=== PATIENT | male | born 1995 | race Caucasian/White ===

== ENCOUNTER 2020-12-08 12:10 | Day surgery (SDC) | payer MEDICAID ==
[2020-12-08] MEDS ORDERED: Dextrose 5%-0.9% NaCl 1,000 ML IV SCH (13:00)
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
[2020-12-08] MEDS ORDERED: Iopamidol 612 MG/ML 100 ML Bottle IVPUSH ONE (13:51)
[2020-12-08] MEDS ORDERED: Iopamidol 612 MG/ML 50 ML SDV IVPUSH ONE (13:51)
[2020-12-08] MEDS ORDERED: Sodium Chloride 0.9% 10 ML Syringe FLUSH SCH (14:00)
--- NOTE | 2020-12-08 15:04 | CT ---
CT abdomen and pelvis Technique: Multiple axial sections were obtained from above the dome of the diaphragm inferiorly through the pubic symphysis. Intravenous and oral contrast was utilized. Delayed images were also obtained through the bladder. Reconstructed coronal and sagittal images were obtained. Findings: Inflammatory change is noted within the right lower quadrant. Appendix shows evidence of appendicoliths. Overall, findings are found compatible with mild appendicitis. Small amount of simple fluid is seen within the pelvis Visualized lung bases show nothing acute. Liver shows no focal abnormality. Gallbladder contains no calcified gallstones. Spleen size is normal. Adrenal glands show no nodule. Kidneys show symmetric contrast enhancement without hydronephrosis or mass being seen. Pancreas shows no discrete abnormality. Abdominal aorta shows no aneurysm. No retroperitoneal adenopathy or mesenteric abnormalities are seen. No pelvic mass or adenopathy is noted. Delayed images show contrast within bladder Bone window settings were reviewed. Spondylitic defects are noted at L5-S1 with minimal spondylolisthesis. Bony structures are otherwise unremarkable for the patient's age. Impression: 1. Inflammatory change within the right lower quadrant. Appendicoliths are seen within the appendix. Findings are compatible with mild appendicitis. 2. Slight free fluid within the pelvis which appears to be simple. 3. Spondylitic defects at L5-S1. Diagnostic code #5
[2020-12-08] MEDS ORDERED: cefOXitin 2 GM in Premix Bag 1 BAG IV ONE (15:22)
[2020-12-08] MEDS ORDERED: Metoclopramide 10 MG/2 ML SDV IVPUSH ONE (15:24)
[2020-12-08] MEDS ORDERED: Ondansetron 4 MG/2 ML SDV ONE (16:00)
[2020-12-08] MEDS ORDERED: Propofol 200 MG/20 ML SDV ONE (16:00)
[2020-12-08] MEDS ORDERED: Rocuronium 50 MG/5 ML Vial ONE (16:00)
[2020-12-08] MEDS ORDERED: fentaNYL 250 MCG/5 ML SDV ONE (16:01)
[2020-12-08] MEDS ORDERED: Lidocaine 1% 4 ML ONE (16:01)
[2020-12-08] MEDS ORDERED: Midazolam 1 MG/ML 2 ML SDV ONE (16:01)
--- NOTE | 2020-12-08 16:12 | PCM.HP.2 ---
H&P History of Present Illness - General Date of Service: 12/08/20 Admit Problem/Dx: Admission Diagnosis/Problem Admission Diagnosis/Problem Appendicitis Source of Information: Patient History Limitations: Reports: No Limitations - History of Present Illness Initial Comments - Free Text/Narative: Patient is 25 otherwise healthy gentleman. He was at a Bachelor libertarian on Monday. Monday morning he started to have some RLQ pain. The pain did not get better. Today he came to the ED. No fevers or chills. He has had mild nausea. no vomiting. No prior surgeries. Onset of Symptoms: Reports: Gradual Duration of Symptoms: Reports: Day(s): (2), Getting Worse Location: Reports: Abdomen Quality: Reports: Ache Severity: Severe Improves with: Reports: Immobilization, Medication Worsens with: Reports: Movement Right Lower Abdomen Pain Score (Numeric/FACES): 8 - Related Data Allergies/Adverse Reactions: Allergies Allergy/AdvReac Type Severity Reaction Status Date / Time acetaminophen [From Percocet] Allergy Facial Verified 12/08/20 12:26 Swelling oxycodone [From Percocet] Allergy Facial Verified 12/08/20 12:26 Swelling Home Medications: Home Meds . [No Known Home Meds] 12/08/20 [History] Past Medical History Cardiovascular History: Reports: None Respiratory History: Reports: Bronchitis, Recurrent, Pneumonia, Recurrent Gastrointestinal History: Reports: GERD Genitourinary History: Reports: None Musculoskeletal History: Reports: None Neurological History: Reports: Concussion Psychiatric History: Reports: None Endocrine/Metabolic History: Reports: None Hematologic History: Reports: None Immunologic History: Reports: None Oncologic (Cancer) History: Reports: None Dermatologic History: Reports: None - Infectious Disease History Infectious Disease History: Reports: Influenza, Novel Coronavirus - Past Surgical History Head Surgeries/Procedures: Reports: None HEENT Surgical History: Reports: Oral Surgery Social & Family History - Family History Family Medical History: No Pertinent Family History - Tobacco Use Tobacco Use Status *Q: Never Tobacco User Second Hand Smoke Exposure: No - Caffeine Use Caffeine Use: Reports: Coffee, Energy Drinks, Soda, Tea - Recreational Drug Use Recreational Drug Use: No - Living Situation & Occupation Occupation: Employed [employer] Review of Systems - Review of Systems: Review Of Systems: See Below General: Reports: No Symptoms HEENT: Reports: No Symptoms Pulmonary: Reports: No Symptoms Cardiovascular: Reports: No Symptoms Gastrointestinal: Reports: Abdominal Pain Genitourinary: Reports: No Symptoms Musculoskeletal: Reports: No Symptoms Exam - Exam Exam: See Below - Vital Signs Vital Signs: Last Vital Signs Temp 97.4 F 12/08/20 12:28 Pulse 69 12/08/20 12:28 Resp 18 12/08/20 12:28 BP 146/80 H 12/08/20 12:28 Pulse Ox 97 12/08/20 12:28 Weight: 961.434 kg - Exam General: Alert, Oriented, Cooperative Lungs: Clear to Auscultation, Normal Respiratory Effort Cardiovascular: Regular Rate, Regular Rhythm, Normal S1, Normal S2 GI/Abdominal Exam: Soft, No Organomegaly, No Distention, No Mass, Tender (RLQ) - Patient Data Lab Results Last 24 hrs: Laboratory Results - last 24 hr 12/08/20 12/08/20 Range/Units 13:15 13:15 WBC 7.11 (4.23-9.07) K/mm3 RBC 4.79 (4.63-6.08) M/mm3 Hgb 14.9 (13.7-17.5) gm/dl Hct 43.3 (40.1-51.0) % MCV 90.4 (79.0-92.2) fl MCH 31.1 (25.7-32.2) pg MCHC 34.4 (32.2-35.5) g/dl RDW Std Deviation 40.6 (35.1-43.9) fL Plt Count 204 (163-337) K/mm3 MPV 11.0 (9.4-12.3) fl Neutrophils % (Manual) 81 H (40-60) % Band Neutrophils % 0 (0-10) % Lymphocytes % (Manual) 15 L (20-40) % Atypical Lymphs % 0 % Monocytes % (Manual) 2 (2-10) % Eosinophils % (Manual) 2 (0.8-7.0) % Basophils % (Manual) 0 L (0.2-1.2) Platelet Estimate Adequate RBC Morph Comment Normal Sodium 139 (136-145) mEq/L Potassium 4.2 (3.5-5.1) mEq/L Chloride 100 (98-107) mEq/L Carbon Dioxide 27 (21-32) mEq/L Anion Gap 16.2 H (5-15) BUN 18 (7-18) mg/dL Creatinine 1.2 (0.7-1.3) mg/dL Est Cr Clr Drug Dosing 116.53 mL/min Estimated GFR (MDRD) > 60 (>60) mL/min BUN/Creatinine Ratio 15.0 (14-18) Glucose 109 H (70-99) mg/dL Calcium 9.0 (8.5-10.1) mg/dL Total Bilirubin 0.8 (0.2-1.0) mg/dL AST 38 H (15-37) U/L ALT 122 H (16-63) U/L Alkaline Phosphatase 111 (46-116) U/L C-Reactive Protein 4.7 H* (<1.0) mg/dL Total Protein 6.9 (6.4-8.2) g/dl Albumin 3.7 (3.4-5.0) g/dl Globulin 3.2 gm/dL Albumin/Globulin Ratio 1.2 (1-2) Lipase 95 (73-393) U/L Result Diagrams: 12/08/20 13:15 12/08/20 13:15 Sepsis Event Note - Evaluation Sepsis Screening Result: No Definite Risk - Focused Exam Vital Signs: Vital Signs Temp Pulse Resp BP Pulse Ox 12/08/20 12:28 97.4 F 69 18 146/80 H 97 Problem List Initiated/Reviewed/Updated: No Orders Last 24hrs: Active Orders 24 hr Category Date Time Status Admission Status [Patient Status] [ADT] Routine ADT 12/08/20 15:52 Active CORONAVIRUS COVID-19 RAPID [MOLEC] Stat Lab 12/08/20 15:22 Ordered URINALYSIS W/MICROSCOPIC [UA W/MICROSCOPIC] [URIN] Stat Lab 12/08/20 12:55 Ordered Dextrose 5%-0.9% NaCl [Dextrose 5%-Normal Saline] 1,000 Med 12/08/20 13:00 Active ml IV ASDIRECTED Sodium Chloride 0.9% [Saline Flush] Med 12/08/20 14:00 Active 10 ml FLUSH ASDIRECTED Schedule Procedure [COMM] Stat Oth 12/08/20 15:54 Ordered Medication Orders Dextrose/Sodium Chloride (Dextrose 5%-Normal Saline) 1,000 mls @ 999 mls/hr IV ASDIRECTED FILIPPO Last Admin: 12/08/20 13:19 Dose: 999 mls/hr Documented by: JORDAN Sodium Chloride (Sodium Chloride 0.9% 10 Ml Syringe) 10 ml FLUSH ASDIRECTED [facility] Admin: 12/08/20 14:33 Dose: 10 ml Documented by: KATIE Assessment/Plan Comment:: Patient has acute appendicitis with appendicolith based on CT imaging. I recomme nded surgical appendectomy. We discussed risks, benefits and alternatives. Specific risks discussed are, but not limited to, infection both on skin and deep, bleeding, injury to adjacent structures, needing open operation, reaction to medications. Questions were answered. Post op expectations were discussed. Informed consent was obtained.
[2020-12-08] MEDS ORDERED: Bupivacaine 0.5%/EPINEPHrine 1:200,000 30 ML SDV ONE (16:30)
--- NOTE | 2020-12-08 16:43 | PCM48HPAN ---
Post Anesthesia Note - EVALUATION WITHIN 48HRS OF ANESTHETIC Vital Signs in Normal Range: Yes Patient Participated in Evaluation: Yes Respiratory Function Stable: Yes Airway Patent: Yes Cardiovascular Function Stable: Yes Hydration Status Stable: Yes Pain Control Satisfactory: Yes Nausea and Vomiting Control Satisfactory: Yes Mental Status Recovered: Yes Vital Signs: Last Vital Signs Temp 36.3 C 12/08/20 12:28 Pulse 69 12/08/20 12:28 Resp 18 12/08/20 12:28 BP 146/80 H 12/08/20 12:28 Pulse Ox 97 12/08/20 12:28 - COMMENTS/OBSERVATIONS Free Text/Narrative:: no anesthesia complications noted
--- NOTE | 2020-12-08 16:46 | PCM.PREANE ---
Preanesthetic Assessment - Procedure Proposed Procedure: Emergency Laparoscopic appendectomy - Anesthesia/Transfusion/Family Hx Anesthesia History: Prior Anesthesia Without Reaction Family History of Anesthesia Reaction: No Transfusion History: No Prior Transfusion(s) - Review of Systems General: Fatigue, Malaise Pulmonary: No Symptoms Cardiovascular: No Symptoms Gastrointestinal: Abdominal Pain (RLQ) Neurological: No Symptoms Other: Reports: None - Physical Assessment NPO Status Date: 12/08/20 NPO Status Time: 13:00 Vital Signs: Last Vital Signs Temp 36.3 C 12/08/20 12:28 Pulse 69 12/08/20 12:28 Resp 18 12/08/20 12:28 BP 146/80 H 12/08/20 12:28 Pulse Ox 97 12/08/20 12:28 Height: 1.96 m Weight: 961.434 kg ASA Class: 1E Mental Status: Alert & Oriented x3 Airway Class: Mallampati = 1 Dentition: Reports: Normal Dentition Thyro-Mental Finger Breadths: 3 Mouth Opening Finger Breadths: 3 ROM/Head Extension: Full Lungs: Clear to Auscultation, Normal Respiratory Effort Cardiovascular: Regular Rate, Regular Rhythm - Lab Values: Laboratory Last Values WBC 7.11 K/mm3 (4.23-9.07) 12/08/20 13:15 RBC 4.79 M/mm3 (4.63-6.08) 12/08/20 13:15 Hgb 14.9 gm/dl (13.7-17.5) 12/08/20 13:15 Hct 43.3 % (40.1-51.0) 12/08/20 13:15 MCV 90.4 fl (79.0-92.2) 12/08/20 13:15 MCH 31.1 pg (25.7-32.2) 12/08/20 13:15 MCHC 34.4 g/dl (32.2-35.5) 12/08/20 13:15 RDW Std Deviation 40.6 fL (35.1-43.9) 12/08/20 13:15 Plt Count 204 K/mm3 (163-337) 12/08/20 13:15 MPV 11.0 fl (9.4-12.3) 12/08/20 13:15 Neutrophils % (Manual) 81 % (40-60) H 12/08/20 13:15 Band Neutrophils % 0 % (0-10) 12/08/20 13:15 Lymphocytes % (Manual) 15 % (20-40) L 12/08/20 13:15 Atypical Lymphs % 0 % 12/08/20 13:15 Monocytes % (Manual) 2 % (2-10) 12/08/20 13:15 Eosinophils % (Manual) 2 % (0.8-7.0) 12/08/20 13:15 Basophils % (Manual) 0 (0.2-1.2) L 12/08/20 13:15 Platelet Estimate Adequate 12/08/20 13:15 RBC Morph Comment Normal 12/08/20 13:15 Sodium 139 mEq/L (136-145) 12/08/20 13:15 Potassium 4.2 mEq/L (3.5-5.1) 12/08/20 13:15 Chloride 100 mEq/L (98-107) 12/08/20 13:15 Carbon Dioxide 27 mEq/L (21-32) 12/08/20 13:15 Anion Gap 16.2 (5-15) H 12/08/20 13:15 BUN 18 mg/dL (7-18) 12/08/20 13:15 Creatinine 1.2 mg/dL (0.7-1.3) 12/08/20 13:15 Est Cr Clr Drug Dosing 116.53 mL/min 12/08/20 13:15 Estimated GFR (MDRD) > 60 mL/min (>60) 12/08/20 13:15 BUN/Creatinine Ratio 15.0 (14-18) 12/08/20 13:15 Glucose 109 mg/dL (70-99) H 12/08/20 13:15 Calcium 9.0 mg/dL (8.5-10.1) 12/08/20 13:15 Total Bilirubin 0.8 mg/dL (0.2-1.0) 12/08/20 13:15 AST 38 U/L (15-37) H 12/08/20 13:15 ALT 122 U/L (16-63) H 12/08/20 13:15 Alkaline Phosphatase 111 U/L (46-116) 12/08/20 13:15 C-Reactive Protein 4.7 mg/dL (<1.0) H* 12/08/20 13:15 Total Protein 6.9 g/dl (6.4-8.2) 12/08/20 13:15 Albumin 3.7 g/dl (3.4-5.0) 12/08/20 13:15 Globulin 3.2 gm/dL 12/08/20 13:15 Albumin/Globulin Ratio 1.2 (1-2) 12/08/20 13:15 Lipase 95 U/L (73-393) 12/08/20 13:15 SARS CoV-2 RNA Rapid LAKSHMI Negative (NEGATIVE) 12/08/20 15:20 - Allergies Allergies/Adverse Reactions: Allergies Allergy/AdvReac Type Severity Reaction Status Date / Time acetaminophen [From Percocet] Allergy Facial Verified 12/08/20 12:26 Swelling oxycodone [From Percocet] Allergy Facial Verified 12/08/20 12:26 Swelling - Blood Blood Available: No Product(s) Available: None - Anesthesia Plan Pre-Op Medication Ordered: None - Acknowledgements Anesthesia Type Planned: General Anesthesia Pt an Appropriate Candidate for the Planned Anesthesia: Yes Alternatives and Risks of Anesthesia Discussed w Pt/Guardian: Yes Pt/Guardian Understands and Agrees with Anesthesia Plan: Yes PreAnesthesia Questionnaire Cardiovascular History: Reports: None Respiratory History: Reports: Bronchitis, Recurrent, Pneumonia, Recurrent Gastrointestinal History: Reports: GERD Genitourinary History: Reports: None Musculoskeletal History: Reports: None Neurological History: Reports: Concussion Psychiatric History: Reports: None Endocrine/Metabolic History: Reports: None Hematologic History: Reports: None Immunologic History: Reports: None Oncologic (Cancer) History: Reports: None Dermatologic History: Reports: None - Infectious Disease History Infectious Disease History: Reports: Influenza, Novel Coronavirus - Past Surgical History Head Surgeries/Procedures: Reports: None HEENT Surgical History: Reports: Oral Surgery - SUBSTANCE USE Tobacco Use Status *Q: Never Tobacco User Second Hand Smoke Exposure: No Recreational Drug Use History: No - HOME MEDS Home Medications: Home Meds . [No Known Home Meds] 12/08/20 [History] - CURRENT (IN HOUSE) MEDS Current Meds: Current Medications Dextrose/Sodium Chloride (Dextrose 5%-Normal Saline) 1,000 mls @ 999 mls/hr IV ASDIRECTED [facility] Last Admin: 12/08/20 13:19 Dose: 999 mls/hr Documented by: Sodium Chloride (Sodium Chloride 0.9% 10 Ml Syringe) 10 ml FLUSH ASDIRECTED [facility] Last Admin: 12/08/20 14:33 Dose: 10 ml Documented by: Discontinued Medications Bupivacaine HCl/Epinephrine Bitart (Bupivacaine 0.5%/Epinephrine 1:200,000 30 Ml Sdv) 30 ml .ROUTE .STK-MED ONE Stop: 12/08/20 16:31 Fentanyl (Fentanyl 250 Mcg/5 Ml Sdv) Confirm Administered Dose 250 mcg .ROUTE .STK-MED ONE Stop: 12/08/20 16:02 Cefoxitin Sodium 2 gm/ Premix 50 mls @ 100 mls/hr IV ONETIME ONE Stop: 12/08/20 15:51 Last Admin: 12/08/20 15:54 Dose: 100 mls/hr Documented by: Lidocaine HCl (Xylocaine-Mpf 1%) Confirm Administered Dose 4 mls @ as directed .ROUTE .STK-MED ONE Stop: 12/08/20 16:02 Iopamidol (Iopamidol 612 Mg/Ml 100 Ml Bottle) 100 ml IVPUSH ONETIME ONE Stop: 12/08/20 13:52 Last Admin: 12/08/20 14:33 Dose: 100 ml Documented by: Iopamidol (Iopamidol 612 Mg/Ml 50 Ml Sdv) 50 ml IVPUSH ONETIME ONE Stop: 12/08/20 13:52 Last Admin: 12/08/20 14:33 Dose: 25 ml Documented by: Metoclopramide HCl (Metoclopramide 10 Mg/2 Ml Sdv) 10 mg IVPUSH ONETIME ONE Stop: 12/08/20 15:25 Last Admin: 12/08/20 15:55 Dose: 10 mg Documented by: Midazolam HCl (Midazolam 1 Mg/Ml 2 Ml Sdv) Confirm Administered Dose 2 mg .ROUTE .STK-MED ONE Stop: 12/08/20 16:02 Ondansetron HCl (Ondansetron 4 Mg/2 Ml Sdv) Confirm Administered Dose 4 mg .ROUTE .STK-MED ONE Stop: 12/08/20 16:01 Propofol (Propofol 200 Mg/20 Ml Sdv) Confirm Administered Dose 200 mg .ROUTE .STK-MED ONE Stop: 12/08/20 16:01 Rocuronium Cameron (Rocuronium 50 Mg/5 Ml Vial) Confirm Administered Dose 50 mg .ROUTE .STK-MED ONE Stop: 12/08/20 16:01
[2020-12-08] MEDS ORDERED: Lactated Ringers 1,000 ML ONE ×3 (16:48→17:54)
[2020-12-08] MEDS ORDERED: Ketorolac 30 MG/ML SDV ONE (17:36)
[2020-12-08] MEDS ORDERED: fentaNYL 100 MCG/2 ML SDV IVPUSH PRN (18:03)
--- NOTE | 2020-12-08 18:04 | PCM.POSTAN ---
POST ANESTHESIA ASSESSMENT - MENTAL STATUS Mental Status: Alert, Oriented - VITAL SIGNS Vital Signs: Last Vital Signs Temp 36.5 C 12/08/20 17:56 Pulse 69 12/08/20 12:28 Resp 12 12/08/20 17:56 BP 136/53 L 12/08/20 17:56 Pulse Ox 100 12/08/20 17:56 - RESPIRATORY Respiratory Status: Respiratory Rate WNL, Airway Patent, O2 Saturation Stable, Supplemental Oxygen - CARDIOVASCULAR CV Status: Pulse Rate WNL, Blood Pressure Stable - GASTROINTESTINAL GI Status: No Symptoms - PAIN Pain Score: 0 - POST OP HYDRATION Hydration Status: Adequate & Stable - OBSERVATIONS Free Text/Narrative:: no anesthesia complications noted
--- NOTE | 2020-12-08 18:18 | PCM48HPAN ---
Post Anesthesia Note - EVALUATION WITHIN 48HRS OF ANESTHETIC Vital Signs in Normal Range: Yes Patient Participated in Evaluation: Yes Respiratory Function Stable: Yes Airway Patent: Yes Cardiovascular Function Stable: Yes Hydration Status Stable: Yes Pain Control Satisfactory: Yes Nausea and Vomiting Control Satisfactory: Yes Mental Status Recovered: Yes Vital Signs: Last Vital Signs Temp 36.5 C 12/08/20 17:56 Pulse 69 12/08/20 12:28 Resp 14 12/08/20 18:15 BP 141/66 H 12/08/20 18:15 Pulse Ox 100 12/08/20 18:17 - COMMENTS/OBSERVATIONS Free Text/Narrative:: no anesthesia complications noted
--- NOTE | 2020-12-08 18:39 | OR ---
DATE OF OPERATION: 12/08/2020 SURGEON: Brown Conti MD PREOPERATIVE DIAGNOSIS: Acute appendicitis. POSTOPERATIVE DIAGNOSIS: Acute appendicitis. OPERATION PERFORMED: Laparoscopic appendectomy. ESTIMATED BLOOD LOSS: 5 mL. ANESTHESIA: Endotracheal with local anesthetic consisting 1% lidocaine. COMPLICATIONS: None. FINDINGS: Acute appendicitis, tightly adhered to the cecum as well as the lateral abdomen. INDICATION AND CONSENT: The patient is a 25-year-old male who started having right lower quadrant abdominal pain yesterday. The patient's pain progressed over time. Today, the patient's pain was severe. The patient presented to the emergency department, where a white count was normal at 7.1. CT scan showed acute appendicitis with appendicolith without abscess. I talked to the patient and I recommended surgery due to appendicolith. Informed consent was obtained, and the patient was given 1 g of cefoxitin in the emergency department. DESCRIPTION OF PROCEDURE: The patient was taken to the operating room, placed in a supine position, padded appropriately. Abdomen was prepped and draped in the usual sterile fashion. Formal time-out was performed. The patient had received preop antibiotics. We began by infiltrating the infraumbilical area, incised this area. Umbilical stalk was elevated and Veress needle was inserted. Abdomen was insufflated to 15 mmHg, followed by placement of 12 mm trocar under direct visualization with a 5-30 laparoscope. No injuries to Veress needle insertion or trocar insertion. Then, two 5 mm trocars were placed, 1 in the suprapubic area and another one in the left lower quadrant. Then, the abdomen was inspected in its entirety. There were no other abnormalities. We focused on the right lower quadrant. We found the appendix stuck to the area of the cecum as well as the lateral abdomen with chronic adhesions. This indicated that the patient likely had a prior episode of appendicitis that self-resolved. There were also light adhesions to the ascending colon to the lateral abdominal wall. With judicious use of bipolar cautery using LigaSure Impact, the appendix was slowly detached from its lateral attachments and from the cecum. A window was made in the appendiceal base and using blue load with Endo JETHRO stapler, the appendiceal base was divided. Then, carefully the rest of the appendix was detached from the cecum, followed by division of lateral attachment using LigaSure Impact. Once the appendix was detached, mesoappendix was taken with LigaSure Impact freeing the appendix. The appendix was placed in the EndoCatch bag. Then, the dissection area was inspected and found to be totally hemostatic. At this point, the appendix was removed through the infraumbilical incision and this area was closed at the fascial level with 0 Vicryl stitches using Santosh- Mario device. Then, all 3 sites were closed at skin level with 4-0 Monocryl followed by Dermabond dressing. The patient tolerated the procedure well. At the end of the procedure, all instrument, sharps, and sponges were counted and found to be correct x2. The patient was awakened from anesthesia, extubated, and taken to the PACU. The patient will follow up with my office in 2 to 3 weeks. [id number] /[id number] MTDD
== END 2020-12-08 19:02 | disposition home or self-care (01) ==
LOC: JD.ED 12:10 → JD.SDS 16:03
PROVIDERS: ATTEND Surgery
DX: K35.30 Acute appendicitis with localized peritonitis, without perforation or gangrene (principal); Z88.8 Allergy status to other drugs, medicaments and biological substances; Z88.5 Allergy status to narcotic agent; Z01.812 Encounter for preprocedural laboratory examination; Z20.822 Contact with and (suspected) exposure to COVID-19
CPT/HCPCS: 36415; 44970; 74177; 80053; 83690; 85007; 85027; 86140; 87635; 96365; 96375; 99285; J0694; J1885; J2250; J2405; J2704; J2765; J3010; J3490; J7042; J7120; Q9967; 00840; 99140; U0002

== ENCOUNTER 2021-12-28 11:18 | Emergency (ER) | payer BC, MEDICAID ==
[2021-12-28] MEDS ORDERED: Ketorolac 30 MG/ML SDV IM ONE (11:57)
== END 2021-12-28 13:10 | disposition home or self-care (01) ==
LOC: JD.ED 11:18
DX: S93.401A Sprain of unspecified ligament of right ankle, initial encounter (principal); Z88.5 Allergy status to narcotic agent; Z88.8 Allergy status to other drugs, medicaments and biological substances; Z86.16 Personal history of COVID-19; X50.1XXA Overexertion from prolonged static or awkward postures, initial encounter
CPT/HCPCS: 73610; 73630; 96372; 99283; J1885; 99282